=== PATIENT | female | born 1975 | race Caucasian/White ===

== ENCOUNTER 2021-09-09 12:42 | Emergency (ER) | payer MEDICAID ==
[~2021-09-09] VITALS: Ht 154.9 cm; Wt 89.8 kg
--- NOTE | 2021-09-09 13:02 | NUR ---
AMBULATED TO BED 3
[2021-09-09 13:07] VITALS: BP_SYST 138
--- NOTE | 2021-09-09 13:15 | NUR ---
MD GRIFFITHAW AT BEDSIDE.
--- NOTE | 2021-09-09 13:39 | NUR ---
MD LINDSAY ADMINISTERING EYE DROPS INTO PT EYES.
[2021-09-09] MEDS ORDERED: TETRACAINE HCL/PF 0.5% OPHTHALMIC DROPS 4 ML OP ONE (13:45)
[2021-09-09] MEDS ORDERED: SULF5DRO EACH EYE (13:52)
--- NOTE | 2021-09-09 13:56 | NUR ---
Patient given written and verbal discharge instructions and verbalizes understanding. ER MD discussed with patient the results and treatment provided. Patient in stable condition. ID arm band removed. Rx of BLEPH-10 given. Patient educated on pain management and to follow up with PMD. Pain Scale 0/10. Opportunity for questions provided and answered. Medication side effect fact sheet provided.
== END 2021-09-09 13:56 | disposition home or self-care (01) ==
LOC: SED 12:42
DX: H10.213 Acute toxic conjunctivitis, bilateral (principal); Z79.899 Other long term (current) drug therapy
CPT/HCPCS: 99283

== ENCOUNTER 2023-12-10 15:56 | Emergency (ER) | payer MEDICAID ==
[~2023-12-10] VITALS: Ht 152.4 cm; Wt 102.1 kg
[~2023-12-10 15:56] MED LIST: SULF5DRO EACH EYE
[2023-12-10 16:08] VITALS: BP_SYST 171; PULSE 95; RESP 16; TEMP 97.8; O2SAT 99
[2023-12-10 19:05] LABS: BASOPHILS % (AUTO) 0.4 % (0.0-2.0); EOSINOPHILS # (AUTO) 0.1 K/uL (0.0-0.4); EOSINOPHILS % (AUTO) 1.6 % (0.0-4.0); HEMATOCRIT 30.1 % (36-48); HEMOGLOBIN 9.2 g/dL (12.0-16.0); LYMPHOCYTES # (AUTO) 0.9 K/uL (1.0-5.5); LYMPHOCYTES % (AUTO) 16.3 % (20.5-51.5); MEAN CORPUSCULAR HEMOGLOBIN 19 pg (27-31); MEAN CORPUSCULAR HGB CONC 31 % (32-36); MEAN CORPUSCULAR VOLUME 62 fL (79.0-98.0); MONOCYTES # (AUTO) 0.2 K/uL (0.0-1.0); MONOCYTES % (AUTO) 4.5 % (1.7-9.3); NEUTROPHILS # (AUTO) 4.1 K/uL (1.8-7.7); NEUTROPHILS % (AUTO) 77.2 % (40.0-70.0); PLATELET COUNT (AUTO) 382 K/uL (130-430); RED BLOOD CELL COUNT(AUTO) 4.82 MIL/uL (4.2-6.2); RED CELL DISTRIBUTION WIDTH 20.2 % (9.0-15.0); WHITE BLOOD COUNT (AUTO) 5.3 K/uL (4.8-10.8)
[2023-12-10 19:34] LABS: ALBUMIN 3.4 g/dL (3.4-4.8); CALCIUM 8.9 mg/dL (8.4-11.0); CREATININE 0.89 mg/dL (0.55-1.30); TOTAL BILIRUBIN 0.4 mg/dL (0.0-1.0); TOTAL PROTEIN, SERUM 7.9 g/dL (6.4-8.3)
[2023-12-10] MEDS: IBUPROFEN 800 MG TABLET PO ONE (19:34)
[2023-12-10] MEDS: HYDROcodone/ACETAMIN 10-325 MG TAB PO ONE (19:35)
[2023-12-10 19:44] LABS: BILIRUBIN,DIRECT 0.1 mg/dL (0.0-0.3)
[2023-12-10 19:50] LABS: SERUM HCG (QUALITATIVE) NEGATIVE (NEGATIVE)
[2023-12-10 20:08] LABS: ANISOCYTOSIS 2+; HYPOCHROMASIA 2+; POLYCHROMASIA 1+; STOMATOCYTES FEW
[2023-12-10 20:21] LABS: BILIRUBIN,URINE NEGATIVE (NEGATIVE); BLOOD, URINE NEGATIVE (NEGATIVE); CLARITY/URINE CLEAR (CLEAR); COLOR,URINE YELLOW (YELLOW); GLUCOSE,URINE NEGATIVE (NEGATIVE); KETONES,URINE NEGATIVE (NEGATIVE); LEUKOCYTE ESTERASE ,URINE NEGATIVE (NEGATIVE); NITRITE, URINE NEGATIVE (NEGATIVE); PROTEIN URINE NEGATIVE (NEGATIVE); UROBILINOGEN,URINE 0.2 (0.2-1.0)
[2023-12-10 20:51] LABS: INR 0.9 (0.8-1.2); PROTHROMBIN TIME 9.8 SECS (9.5-12.5)
[2023-12-10] MEDS ORDERED: HYDR-3917 PO (21:14)
[2023-12-10] MEDS ORDERED: IBUP-1969 PO (21:14)
[2023-12-10 21:23] VITALS: BP_SYST 158; PULSE 88; RESP 16; TEMP 98.6; O2SAT 99
== END 2023-12-10 21:23 | disposition home or self-care (01) ==
LOC: SED 15:56
DX: M54.50 Low back pain, unspecified (principal); R10.30 Lower abdominal pain, unspecified; R11.0 Nausea; Z79.899 Other long term (current) drug therapy
CPT/HCPCS: 36415; 80048; 80076; 81001; 81003; 81025; 82150; 83605; 83690; 84703; 85025; 85610; 85730; 99284

== ENCOUNTER 2024-01-01 08:54 | Emergency (ER) | payer MEDICAID ==
[~2024-01-01] VITALS: Ht 154.9 cm; Wt 108.4 kg
[~2024-01-01 08:54] MED LIST changes: +HYDR-3917 PO; +IBUP-1969 PO
[2024-01-01 08:59] VITALS: BP_SYST 168; PULSE 111; RESP 22; O2SAT 96
[2024-01-01 09:57] LABS: COVID19 ANTIGEN SOFIA FIA NEGATIVE (NEGATIVE)
[2024-01-01 09:58] LABS: INFLUENZA TYPE A Negative (NEGATIVE); INFLUENZA TYPE B NEGATIVE (NEGATIVE)
[2024-01-01] MEDS ORDERED: ZIT250 PO (10:16)
[2024-01-01] MEDS ORDERED: ALBMDI INH (10:23)
[2024-01-01] MEDS: IPRATROPIUM/ALBUTEROL SULFATE 3 ML AMPUL.NEB (DUONEB) INH ONE (10:28)
[2024-01-01 11:09] VITALS: BP_SYST 150; PULSE 96; RESP 22; TEMP 99.1; O2SAT 95
== END 2024-01-01 11:08 | disposition home or self-care (01) ==
LOC: SED 08:54
DX: J20.9 Acute bronchitis, unspecified (principal); J06.9 Acute upper respiratory infection, unspecified; Z20.822 Contact with and (suspected) exposure to COVID-19
CPT/HCPCS: 36415; 71045; 81025; 94640; 99285